=== PATIENT | female | born 1980 | race African-American/Black ===

== ENCOUNTER 2016-10-22 21:56 | Emergency (ER) | payer SELFPAY | END 2016-10-23 01:22 | disposition home or self-care (01) | LOC: D.ER 21:56 | DX: B34.9 Viral infection, unspecified (principal); F17.200 Nicotine dependence, unspecified, uncomplicated ==

== ENCOUNTER 2017-12-04 07:28 | Emergency (ER) | payer MEDICAID ==
[2017-12-04 09:09] LABS: APPEARANCE CLEAR (CLEAR); BILIRUBIN NEGATIVE (NEGATIVE); COLOR STRAW (YELLOW); GLUCOSE NEGATIVE (NEGATIVE); KETONE NEGATIVE (NEGATIVE); NITRITE NEGATIVE (NEGATIVE); PROTEIN NEGATIVE (NEGATIVE); SPECIFIC GRAVITY 1.005 (1.005-1.020); UROBILINOGEN NORMAL (NORMAL)
[2017-12-04 09:12] LABS: HCG URINE NEGATIVE (NEGATIVE)
== END 2017-12-04 10:15 | disposition home or self-care (01) ==
LOC: D.ER 07:28
PROVIDERS: Family Medicine
DX: J11.1 Influenza due to unidentified influenza virus with other respiratory manifestations (principal); R05 Cough; R50.9 Fever, unspecified; M79.1 Myalgia